=== PATIENT | female | born 1980 | race Caucasian/White ===

== ENCOUNTER 2017-05-27 17:44 | Inpatient (IN) | payer OTHER ==
[~2017-05-27] VITALS: Ht 158.8 cm; Wt 83.2 kg
[2017-05-27] VITALS (10 sets, daily range): BP systolic 99–122; BP diastolic 57–77
[2017-05-27] MEDS ORDERED: ZANTTAB9 PO (18:02)
[2017-05-27] MEDS ORDERED: PRENTAB9 PO (18:02)
[2017-05-27] MEDS ORDERED: LR 1,000 ML IV SCH (19:00)
[2017-05-27] MEDS ORDERED: OXYTOCIN DRIP 30 UNITS in APPROPRIATE DILUENT 1 EA IV SCH (19:00)
[2017-05-27 20:02] LABS: MEAN CORPUSCULAR HEMOGLOBIN 30.1 pg (27.0-33.0); MEAN CORPUSCULAR HGB CONC 34.5 g/dl (32.0-36.5); MEAN CORPUSCULAR VOLUME 87.2 fl (80.0-96.0); PLATELET COUNT, AUTOMATED 179 10^3/uL (150-450); RED CELL DISTRIBUTION WIDTH 13.3 % (11.5-14.5); WHITE BLOOD COUNT 10.7 10^3/uL (4.0-10.0)
[2017-05-27] MEDS ORDERED: FENTANYL 2MCG/ML ROPIVACAINE 0.2% IN 0.9% NACL 200ML IVBAG As Ordered ONE (23:37)
[2017-05-28] VITALS (18 sets, daily range): BP systolic 96–131; BP diastolic 52–83
[2017-05-28] MEDS ORDERED: NALOXONE INJ 0.4 MG/1 ML VIAL (J2310) IV PRN (00:18)
[2017-05-28] MEDS ORDERED: ePHEDrine SULFATE 25 MG/5 ML(5MG/ML) SYRINGE IV PRN (00:18)
[2017-05-28] MEDS ORDERED: diphenhydrAMINE INJ 50MG/ML VIAL (J1200) IV PRN (00:18)
[2017-05-28] MEDS ORDERED: REFRIGERATOR IV KEYS XX PRN (00:18)
[2017-05-28] MEDS ORDERED: EPIDURAL COMMENT XX SCH (00:18)
[2017-05-28] MEDS ORDERED: LACTATED RINGER'S 1000 ML IV PRN (00:18)
[2017-05-28] MEDS ORDERED: FENTANYL/ROPIVACAINE/NACL BAG 200 ML EPIDURAL SCH (00:18)
[2017-05-28] MEDS ORDERED: EPIDURAL/PCA KEYS XX PRN (00:18)
[2017-05-28] MEDS ORDERED: ONDANSETRON 4MG/2ML VIAL (J2405) IV PRN (00:18)
--- NOTE | 2017-05-28 00:44 | IPNPDOC ---
Text Note Date of Service The patient was seen on 05/28/17. NOTE Assumed care at ~2000 after SBAR from [facility]OG[facility] Pascal. SROM 1500ish yest Now s/p epidural and on 10 mu/min pitocin Cat 1 NST throughout, reg ctx's Cx 90/0, SROM of a post forebag with a ctx during check Doing well, recheck in 2 hrs, sooner prn Sessions VS,Tami, I+O VSTami I+O Laboratory Tests 05/27/17 19:50 Red Blood Count 4.78, Mean Corpuscular Volume 87.2, Mean Corpuscular Hemoglobin 30.1, Mean Corpuscular Hemoglobin Concent 34.5, Red Cell Distribution Width 13.3 Vital Signs Date Time Temp Pulse Resp B/P (MAP) Pulse Ox O2 Delivery O2 Flow Rate FiO2 05/27/17 23:53 98.4 80 122/76 (91) 05/27/17 23:24 18 SESSIONS,TOM Oglesby MD May 28, 2017 00:44
[2017-05-28] MEDS ORDERED: OXYTOCIN DRIP 30 UNITS in APPROPRIATE DILUENT 1 EA IV SCH (01:58)
[2017-05-28] MEDS ORDERED: IBUPROFEN 800 MG TAB PO PRN (02:00)
[2017-05-28] MEDS ORDERED: ACETAMINOPHEN TAB 650MG DOSE (2X325MG) PO PRN (02:00)
[2017-05-28] MEDS ORDERED: MEASLES,MUMPS,RUBELLA VACCINE INJ (MMR-II) (90707) SC SCH (02:00)
[2017-05-28] MEDS ORDERED: RHOGAM 300 MCG (1500 IU) INJ (J2790) IM SCH (02:00)
[2017-05-28] MEDS ORDERED: METOCLOPRAMIDE INJ 10MG/2ML VIAL (J2765) IV PRN (02:00)
[2017-05-28] MEDS ORDERED: DIBUCAINE 1% OINTMENT 30GM TOP PRN (02:00)
--- NOTE | 2017-05-28 02:04 | DNPDOC ---
[facility] Delivery Note Delivery Note DATE OF DELIVERY: 1DEC @0143 PREDELIVERY DIAGNOSIS: 40 6/7 weeks' gestation and labor. POST DELIVERY DIAGNOSIS: Delivered. PROCEDURE: Spontaneous vaginal delivery WAN SUPPORT SPECIALIST: Dr. Monreal ANESTHESIA: epidural ESTIMATED BLOOD LOSS: 200 mL. FINDINGS: 8 pound 11 ounce male infant, Score 9/9 DELIVERY SUMMARY: Called at C/C, pushed very well, no delay of the vtx or ant/ post shoulders, To abd, good cry and tone. Cord C/C by GM. Placenta intact with traction/massage. Pit going, fundus firm. Small 1st degr per lac repaired with 3-0 vicryl. Good cosmesis/hemostasis. Sessions MD MONREAL,TOM Oglesby MD May 28, 2017 02:04
[2017-05-28] MEDS: DOCUSATE SODIUM 100 MG CAP PO SCH ×2 (08:24→20:16)
[2017-05-28] MEDS: PRENATAL VITAMINS CHEWABLE TABLET PO SCH (08:24)
--- NOTE | 2017-05-28 08:48 | IPN ---
DATE: 05/27/2017 This patient requested circumcision of her male . After discussing risks and benefits of circumcision, the medical and nonmedical indications, the penile block and aftercare, expressed understanding of the penile block, aftercare and complications, signed and witnessed the consent form. We await the clearance by the manager party.
[2017-05-29 06:01] VITALS: BP 114/74
[2017-05-29] MEDS: PRENATAL VITAMINS CHEWABLE TABLET PO SCH (08:14)
[2017-05-29] MEDS: DOCUSATE SODIUM 100 MG CAP PO SCH ×2 (08:14→08:24)
[2017-05-29] MEDS ORDERED: IBUP-1114 PO (08:55)
[2017-05-29] MEDS ORDERED: NUPE1OIN2 TOP (08:55)
[2017-05-29] MEDS ORDERED: ACET50TA PO (08:55)
[2017-05-29] MEDS ORDERED: COLA100C5 PO (08:55)
--- NOTE | 2017-05-29 16:34 | DSES ---
DATE OF ADMISSION: 05/27/2017 DATE OF DISCHARGE: 05/29/2017 HISTORY: This lady is a 36-year-old 4, now para 3, admitted at 40 and 6 weeks of gestation, spontaneous rupture of membranes in labor. She had a spontaneous vaginal delivery male 8 pounds 11 ounces, scores of 9 and 9 at one and five minutes respectively. She had small first-degree tear which was oversewn in usual fashion. On her second day, we discussed phlebitis, cystitis, mastitis, metritis and cellulitis, diet, exercise, pain management, perineal, breast and wound care. Her admitting hemoglobin 14.4, hematocrit 41.7, platelets are 179. Her vital signs on discharge blood pressure 114/74, respirations 20, pulse 66, temperature 97.4. The rest the examination is unremarkable. She is normocephalic, atraumatic. Neck full range of motion. Pupils equal and reactive to light. Distal pulses symmetric. No evidence of deep venous thrombosis (DVT), pulmonary embolism (PE) or superficial phlebitis. No wheezes or rhonchi. Chest is clear bilaterally to bases. No costovertebral angle tenderness. Uterus is nontender, two below. Four quadrant bowel sounds are noted. Perineum is healing. No rashes, lesions or pruritus. No arthralgia or myalgia. No complaints of cough, wheezes, shortness of breath or dyspnea on exertion. No chest pain not bleeding. Neuro complete. No frequency, urgency. No nausea, vomiting, diarrhea or constipation. No diabetic issues. She does not smoke, drink, or abuse drugs. She is . There is no domestic violence. In summary, we have a term gestation, delivered a live male infant, discharged today. Followup at [facility] for six-week checkup. Medications were given at discharge. All questions were answered.
== END 2017-05-29 13:05 | disposition home or self-care (01) | DRG 775 ==
LOC: M LDO 17:44 → M LDI 18:44 → M OBS 05-28 03:40
PROVIDERS: ADMIT Obstetrics & Gynecology; ATTEND Obstetrics & Gynecology
PROC: 10E0XZZ Delivery of Products of Conception, External Approach (ICD-10-PCS; principal; 2017-05-28)
PROC: 0HQ9XZZ Repair Perineum Skin, External Approach (ICD-10-PCS; 2017-05-28)
DX: O48.0 Post-term pregnancy (principal); Z37.0 Single live birth; O70.0 First degree perineal laceration during delivery; Z3A.40 40 weeks gestation of pregnancy